=== PATIENT | female | born 1985 | race Caucasian/White ===

== ENCOUNTER 2023-04-08 05:37 | Inpatient (IN) | payer BC ==
[~2023-04-08 05:37] MED LIST: Lactated Ringers 1,000 ML IV SCH; Oxytocin/Lactated Ringers 10 UNIT/1,000 ML BAG IV SCH; Sodium Chloride 0.9% 10 ML Syringe FLUSH PRN; Sodium Chloride 0.9% 10 ML Syringe FLUSH SCH; ceFAZolin 2 GM in Sodium Chloride 0.9% 50 ML IV ONE
[2023-04-08] MEDS ORDERED: Metoclopramide 10 MG/2 ML SDV IVPUSH ONE (05:50)
[2023-04-08] MEDS ORDERED: Citric Acid/Sodium Citrate Solution 30 ML Cup PO ONE (05:50)
[2023-04-08] MEDS: Lactated Ringers 1,000 ML IV SCH ×2 (05:55→07:15)
[2023-04-08] MEDS ORDERED: Lactated Ringers 1,000 ML IV SCH (06:00)
[2023-04-08 06:09] LABS: BASOPHILS ABSOLUTE AUTO 0.02 K/mm3 (0.01-0.08); BASOPHILS PERCENT AUTO 0.2 % (0.1-1.2); EOSINOPHILS ABSOLUTE AUTO 0.37 K/mm3 (0.04-0.36); EOSINOPHILS PERCENT AUTO 4.4 (0.7-5.8); HEMATOCRIT 35.1 % (34.1-44.9); HEMOGLOBIN 11.6 gm/dl (11.2-15.7); IMMATURE GRAN ABSOLUTE AUTO 0.03 K/mm3 (0.00-0.10); IMMATURE GRAN PERCENT AUTO 0.4 % (<=1.0); LYMPHOCYTES ABSOLUTE AUTO 2.01 K/mm3 (1.18-3.74); LYMPHOCYTES PERCENT AUTO 24.1 % (19.3-51.7); MEAN CORPUSCULAR HEMOGLOBIN 30.1 pg (25.6-32.2); MEAN CORPUSCULAR VOLUME 91.2 fl (79.4-94.8); MEAN PLATELET VOLUME 10.3 fl (9.4-12.3); MONOCYTES ABSOLUTE AUTO 0.86 K/mm3 (0.24-0.36); MONOCYTES PERCENT AUTO 10.3 % (4.7-12.5); NEUTROPHILS ABSOLUTE AUTO 5.05 K/mm3 (1.56-6.13); NEUTROPHILS PERCENT AUTO 60.6 % (34.0-71.1); PLATELET COUNT,PLT 229 K/mm3 (182-369); RED BLOOD CELL COUNT 3.85 M/mm3 (3.98-5.22); WHITE BLOOD CELL COUNT,WBC 8.34 K/mm3 (3.98-10.04)
[2023-04-08] MEDS ORDERED: fentaNYL 100 MCG/2 ML SDV ONE (07:01)
[2023-04-08] MEDS ORDERED: Morphine PF 1 MG/ML Amp ONE (07:02)
[2023-04-08] MEDS ORDERED: ceFAZolin 2 GM Vial ONE (07:05)
[2023-04-08] MEDS ORDERED: Oxytocin 10 Units/1 ML SDV ONE ×2 (07:08→08:09)
[2023-04-08] MEDS ORDERED: ePHEDrine 50 MG/ML SDV ONE (07:50)
[2023-04-08] MEDS ORDERED: Lactated Ringers 1,000 ML ONE (07:53)
[2023-04-08] MEDS ORDERED: Ondansetron 4 MG/2 ML SDV ONE (07:53)
[2023-04-08] MEDS ORDERED: Methylergonovine 0.2 MG/1 ML Amp ONE (08:01)
[2023-04-08] MEDS ORDERED: Ketorolac 30 MG/ML SDV ONE (08:17)
[2023-04-08] MEDS ORDERED: fentaNYL 100 MCG/2 ML SDV IVPUSH PRN (08:44)
[2023-04-08] MEDS ORDERED: Ondansetron 4 MG/2 ML SDV IVPUSH PRN (08:44)
[2023-04-08] MEDS ORDERED: diphenhydrAMINE 50 MG/ML SDV IVPUSH PRN ×2 (08:44→11:06)
[2023-04-08] MEDS ORDERED: Naloxone 0.4 MG/ML SDV IVPUSH PRN (11:06)
[2023-04-08] MEDS ORDERED: Acetaminophen/oxyCODONE 325-5 MG Tab PO PRN ×2 (11:06)
[2023-04-08] MEDS ORDERED: ePHEDrine 50 MG/ML SDV IVPUSH PRN (11:06)
[2023-04-08] MEDS ORDERED: Dextrose 5%-Lactated Ringers 1,000 ML IV SCH (11:15)
[2023-04-08] MEDS: Ondansetron 4 MG/2 ML SDV IV PRN ×2 (14:29→20:39)
[2023-04-08] MEDS: Ketorolac 30 MG/ML SDV IVPUSH SCH ×2 (16:01→21:14)
[2023-04-08] MEDS ORDERED: Promethazine 25 MG Tab PO PRN (21:03)
[2023-04-08] MEDS ORDERED: Ondansetron 4 MG/2 ML SDV IV PRN (21:04)
[2023-04-09] MEDS: Ketorolac 30 MG/ML SDV IVPUSH SCH (03:27)
[2023-04-09 05:30] LABS: MEAN CORPUSCULAR HEMOGLOBIN 30.6 pg (25.6-32.2); MEAN CORPUSCULAR HGB CONC 33.1 g/dl (32.2-35.5); MEAN CORPUSCULAR VOLUME 92.5 fl (79.4-94.8); MEAN PLATELET VOLUME 9.5 fl (9.4-12.3); PLATELET COUNT,PLT 173 K/mm3 (182-369); RED BLOOD CELL COUNT 2.81 M/mm3 (3.98-5.22); WHITE BLOOD CELL COUNT,WBC 9.82 K/mm3 (3.98-10.04)
[2023-04-09 05:40] LABS: HEMOGLOBIN 8.6 gm/dl (11.2-15.7)
[2023-04-09] MEDS: Ibuprofen 600 MG Tab PO PRN ×3 (09:49→22:55)
[2023-04-09] MEDS: Docusate Sodium 100 MG Cap PO PRN (09:49)
[2023-04-10] MEDS: Ibuprofen 600 MG Tab PO PRN ×2 (04:50→11:08)
[2023-04-10] MEDS: Docusate Sodium 100 MG Cap PO PRN (11:08)
== END 2023-04-10 10:05 | disposition home or self-care (01) | DRG 540 ==
LOC: JD.OB 05:37
PROVIDERS: ADMIT Obstetrics & Gynecology; ATTEND Obstetrics & Gynecology
PROC: 10D00Z1 Extraction of Products of Conception, Low, Open Approach (ICD-10-PCS; principal; 2023-04-08)
DX: O32.1XX0 Maternal care for breech presentation, not applicable or unspecified (principal); Z3A.39 39 weeks gestation of pregnancy; Z37.0 Single live birth
CPT/HCPCS: 01961; 36415; 59025; 85025; 85027; 86592; 86850; 86900; 86901; 94762; A9270-GY; J0690; J1885; J2210; J2274; J2405; J2590; J2765; J3010; J3490; J7120; J7121; J8597